=== PATIENT | male | born 1965 | race Caucasian/White ===

== ENCOUNTER → 2017-01-15 | Outpatient (CLI) | payer BC ==
[~2017-01-15] MED LIST: JANUVIA PO; JARDIANCE25 MG PO; KROGER PHARMACY; MS CONTIN60 M1 PO; NEURONTIN PO; NEURONTIN800 MG PO; PERCOCET PO; TOPAMAX25 MG PO; VOLTAREN75 MG PO; ZANAFLEX4 M1 PO
--- NOTE | ~2017-01-15 | US136 ---
[facility] A Service of [facility] RADIOLOGY TEXT RESULTS PATIENT: MADIE STANFORD LOCATION: CNIV : 63 UNIT #: [id number] AGE: [address]: NIMA LAZO MD SEX: M ORDER DR: [id number] [facility] [address] [place], [place] [address] [id number] O MR#: [id number] Acc #: [id number] NAME: MADIE STANFORD. : 1965 SEX: M STUDY DATE/TIME: 01/15/2017 8:22 UNIT: CNIV ROOM: STUDY DESCRIPTION: U/L Ext Art Study [facility] Bil Attending Physician: Nima Lazo M.D. Referring Physician: Nima Lazo M.D. Ordering Physician: Nima Lazo M.D. Primary Care Physician: Nima Lazo M.D. MEDICAL IMAGING REPORT This report is preliminary unless electronic signature is present DATE OF EXAMINATION 01/15/2017 EXAMINATION Ankle-brachial indices CLINICAL HISTORY Claudication. FINDINGS The right brachial artery pressure is 132, the right dorsalis pedis pressure is 137, with an ntbro-fr-mrbtplef index of 1.04. The right posterior tibial pressure is 148, with an qygby-cm-bxxrizwh index of 1.12. The right digital pressure is 84, with a toe-index of 0.64. The left brachial artery pressure is 126. The left dorsalis pedis pressure is 112, with an niswa-vb-dzghiwnx index of 0.85. Left posterior tibial measures 124, with an dhmgv-br-dnwyjtve index of 0.94. The left digital pressure is 108, with a toe-index of 0.82. Ankle waveforms demonstrate a sharp upstroke and systolic peak, bilaterally. Mild blunting of the right and left great toe waveforms. Digital waveforms of the posterior tibial and dorsalis pedis arteries are triphasic, bilaterally. IMPRESSION 1. The right RACHELLE is 1.12, with no evidence of arterial insufficiency. 2. The left Rachelle is 0.94, with no evidence of arterial insufficiency. Dictated by... Shadi Gandhi M.D. [facility] A Service of [facility] & [facility] RADIOLOGY TEXT RESULTS PATIENT: MADIE STANFORD LOCATION: [facility] : 63 UNIT #: [id number] AGE: [address]: NIMA LAZO MD SEX: M ORDER DR: THIS IS AN ELECTRONICALLY VERIFIED REPORT Shadi Gandhi M.D. at 01/16/2017 7:44 AM MIMI/kasey TD: 01/15/2017 14:50 JOB #: [id number] MEDICAL IMAGING REPORT Page 1 of 1 COPY
== END | disposition home or self-care (01) ==
LOC: CNIV 08:13
DX: I73.9 Peripheral vascular disease, unspecified (principal)
CPT/HCPCS: 93922

== ENCOUNTER → 2017-02-11 | Day surgery (SDC) | payer BC ==
--- NOTE | ~2017-02-11 | OR ---
Unit #: [id number] #: [id number] Patient: MADIE STANFORD [id number] [address] [place], [place] [address] [id number] O MR#: [id number] NAME: MADIE STANFORD ROOM: Date of Procedure: 02/11/2017 Admission Date: 02/11/2017 Surgeon: Austen Nguyen M.D. : 1965 Attending Physician: Austen Nguyen M.D. Primary Care Physician: Nima Palomino M.D. OPERATIVE REPORT PREOPERATIVE DIAGNOSES Neck pain and cervical facet disease. POSTOPERATIVE DIAGNOSES Neck pain and cervical facet disease. PROCEDURE PERFORMED Cervical facet injection bilaterally with intravenous sedation and fluoroscopic guidance for needle localization. INDICATIONS FOR PROCEDURE The patient is a 51-year-old male with worsening neck pain. Workup demonstrated most likely etiology to the C4-C5 facet joints. Plan is for trial of diagnostic and therapeutic cervical facet injection. DESCRIPTION OF PROCEDURE Procedure #1: The patient was placed in a seated position. Standard monitors were applied. Sterile prep and drape of the cervical area were performed. The skin then overlying the right C4-C5 facet was localized with 1% lidocaine. A 22-gauge Quincke point spinal needle was then advanced with fluoroscopic guidance to bring the edge of the needle within the right C4-C5 facet joint. The patient did not complain of pain or paresthesia. After this was confirmed, a dose of 1 mL of a mixture of 80 mg of Depo-Medrol and 2 mL of 0.25% bupivacaine were deposited, 0.5 mL within the joint and 0.5 mL just outside. The needle was flushed and removed. Procedure #2: Left C4-C5 facet injection. The skin overlying the left C4-C5 facet joint was localized with 1% lidocaine. A 22-gauge Quincke point spinal needle was advanced with biplanar fluoroscopic guidance to bring the needle tip within the edge of the left C4-C5 facet joint. After this was confirmed with fluoroscopy, 1 mL of a mixture of the previously mentioned injectate was deposited. The needle was flushed and removed. The patient had no complaints of pain or paresthesia. Dictated by... Austen Nguyen M.D. FRANCISCO/naya TD: 02/11/2017 12:48 Unit #: [id number] #: [id number] Patient: MADIE STANFORD JOB #: [id number] OPERATIVE REPORT Page 1 of 1 X Austen Nguyen MD X PROCEDURE OPERATIVE NOTE
== END | disposition home or self-care (01) ==
LOC: CCSC 08:40
DX: M53.82 Other specified dorsopathies, cervical region (principal); M50.322 Other cervical disc degeneration at C5-C6 level; M99.71 Connective tissue and disc stenosis of intervertebral foramina of cervical region; E11.9 Type 2 diabetes mellitus without complications; Z88.5 Allergy status to narcotic agent; Z79.899 Other long term (current) drug therapy
CPT/HCPCS: 82947; J1040; J2250